=== PATIENT | male | born 1950 | race Caucasian/White ===

== ENCOUNTER 2016-10-27 13:20 | Emergency (ER) | payer BC ==
[2016-10-27] MEDS ORDERED: Aspirin 81 MG Tab.Chew PO ONE (13:35)
[2016-10-27 13:44] VITALS: BP 124/73
[2016-10-27 13:58] LABS: CHLORIDE,CL 105 mEq/L (98-106); SODIUM,NA 141 mEq/L (136-145)
--- NOTE | 2016-10-27 15:59 | EDM.PDOC ---
ED HISTORY OF PRESENT ILLNESS - General Chief Complaint: Chest Pain Stated Complaint: CHEST PAIN Time Seen by Provider: 10/27/16 14:17 Source of Information: Reports: Patient History Limitations: Reports: No limitations - History of Present Illness INITIAL COMMENTS - FREE TEXT/NARRATIVE: History of present illness: 66-year-old male presenting with complaints of sternal chest pain. Patient indicates the pain has been intermittent over the last 3 days and has caused him concern. Patient indicates that in this moment of time at assessment he no longer is having chest pain. Patient also indicates that he has had a relatively recent stress test as well as extensive family history of cardiac problems. Review of systems: As per history of present illness and below otherwise all systems reviewed and negative. Past medical history: As per history of present illness and as reviewed below otherwise noncontributory. Surgical history: As per history of present illness and as reviewed below otherwise noncontributory. Social history: No reported history of drug or alcohol abuse. Family history: As per history of present illness and as reviewed below otherwise noncontributory. Physical exam: HEENT: Atraumatic, normocephalic, pupils reactive, negative for conjunctival pallor or scleral icterus, mucous membranes moist, throat clear, neck supple, nontender, trachea midline. Lungs: Clear to auscultation, breath sounds equal bilaterally, chest nontender. Heart: S1S2, regular, negative for clicks, rubs, or JVD. Abdomen: Soft, nondistended, nontender. Negative for masses or hepatosplenomegaly. Negative for costovertebral tenderness. Pelvis: Stable nontender. Genitourinary: Deferred. Rectal: Deferred. Extremities: Atraumatic, negative for cords or calf pain. Neurovascular unremarkable. Neuro: Awake, alert, oriented. Cranial nerves II through XII unremarkable. Cerebellum unremarkable. Motor and sensory unremarkable throughout. Exam nonfocal. 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 Repeat enzymes noted no intervasl change in troponin Diagnostics: CBC, CMP, troponin, EKG, chest x-ray repeat troponin as well as CK and CK-MB send out Therapeutics: Impression: [Atypical chest pain Plan: Discharge patient to home with follow up Sunday with cardiology Definitive disposition and diagnosis as appropriate pending reevaluation and review of above. - Related Data Allergies/ADRs: Allergies Allergy/AdvReac Type Severity Reaction Status Date / Time No Known Allergies Allergy Verified 10/27/16 13:37 Home Meds: Home Meds Ascorbate Calcium [Vitamin C] 500 mg PO BID 10/15/13 [History] Aspirin [Ecotrin] 81 mg PO QPM 10/15/13 [History] Cholecalciferol (Vitamin D3) [Vitamin D] 1,000 unit PO BID 10/15/13 [History] Cyanocobalamin (Vitamin B-12) [Cyanocobalamin Injection] 1,000 mcg IJ Q30D 10/15 [History] Dipyridamole [Dipyridamole] 50 mg PO TID 10/15/13 [History] Flaxseed Oil [Flax Oil] 1,000 mg PO BID 10/15/13 [History] Levothyroxine [Sythroid] 100 mcg PO DAILY 10/15/13 [History] Lysine [L-Lysine] 500 mg PO BID 10/15/13 [History] Multivitamin [Daily Multiple Vitamin] 1 tab PO DAILY 10/15/13 [History] Simvastatin [Simvastatin] 40 mg PO QPM 10/15/13 [History] Albuterol [Ventolin HFA] 2 puff INH ASDIRECTED PRN 07/09/15 [History] Alendronate Sodium [Fosamax] 70 mg PO WEEKLY 07/09/15 [History] Brimonidine/Timolol [Combigan 0.2%/0.5% Ophth Soln] 1 drop EYERT BID 07/09/15 [ History] Budesonide/Formoterol [Symbicort 160-4.5 MCG] 2 puff INH BID 07/09/15 [History] Cyanocobalamin/FA/Pyridoxine [Folbee] 1 tab PO DAILY 07/09/15 [History] Mycophenolate Mofetil [Cellcept] 1,500 mg PO BID 07/09/15 [History] Past Medical History HEENT History: Reports: Cataract Cardiovascular History: Reports: High cholesterol Respiratory History: Reports: COPD Endocrine/Metabolic History: Reports: Hypothyroidism - Past Surgical History HEENT Surgical History: Reports: Cataract surgery Social & Family History - Tobacco Use Smoking Status *Q: Former Smoker Years of Tobacco use: 50 Tobacco Use Comment: quit 3 years ago - Caffeine Use Caffeine Use: Reports: Coffee - Recreational Drug Use Recreational Drug Use: No - Living Situation & Occupation Living situation: Reports: Occupation: employed ED ROS GENERAL - Review of Systems Review Of Systems: See Below (See history of present illness) ED EXAM, GENERAL - Physical Exam Exam: See Below (See history of present illness) Course - Vital Signs Last Recorded V/S: Last Vital Signs Temp 36.0 C 10/27/16 13:29 Pulse 95 10/27/16 13:29 Resp 16 10/27/16 13:29 BP 124/73 10/27/16 13:44 Pulse Ox 96 10/27/16 13:29 - Orders/Labs/Meds Orders: Active Orders 24 hr Category Date Time Status CXR [Chest 2V] [CR] Stat Exams 10/27/16 13:33 Taken CKMB [REF] Stat Lab 10/27/16 16:22 Received Labs: Laboratory Tests 10/27/16 10/27/16 10/27/16 Range/Units 13:33 13:33 13:33 WBC 5.8 (5.0-10.0) 10^3/uL RBC 4.44 L (4.50-6.00) 10^6/uL Hgb 14.1 (14.0-18.0) g/dL Hct 43.3 (40.0-54.0) % MCV 97.5 H (82.0-94.0) fL MCH 31.8 (27.0-32.0) pg MCHC 32.6 L (33.0-38.0) g/dL RDW Coeff of [place] 14.4 (11.0-15.0) % Plt Count 316 (150-400) 10^3/uL Neut % (Auto) 62.9 (35-85) % Lymph % (Auto) 22.5 (10-55) % [place] % (Auto) 12.7 (0-16) % Eos % (Auto) 1.2 (0-5) % Baso % (Auto) 0.7 (0-3) % Neut # 3.65 (1.80-7.00) 10^3/uL Lymph # 1.31 (1.00-4.80) 10^3/uL [place] # 0.74 (0.00-0.80) 10^3/uL Eos # 0.07 (0.00-0.45) 10^3/uL Baso # 0.04 10^3/uL PT 9.7 (9.7-12.3) SEC INR 0.92 (0.92-1.18) APTT 28.0 (24.5-30.9) SEC Sodium 141 (136-145) mEq/L Potassium 4.1 (3.5-5.0) mEq/L Chloride 105 (98-106) mEq/L Carbon Dioxide 30 (21-32) mmol/L BUN 15 (7-18) mg/dL Creatinine 1.0 (0.7-1.3) mg/dL Est Cr Clr Drug Dosing 64.69 mL/min Estimated GFR (MDRD) > 60 (>=60) mL/min Glucose 105 H (75-99) mg/dL Calcium 8.8 (8.4-10.1) mg/dL Lactate Dehydrogenase 111 (100-190) U/L Creatine Kinase 34 L (35-232) U/L Troponin I < 0.017 (0.00-0.06) ng/mL 10/27/16 Range/Units 16:15 WBC (5.0-10.0) 10^3/uL RBC (4.50-6.00) 10^6/uL Hgb (14.0-18.0) g/dL Hct (40.0-54.0) % MCV (82.0-94.0) fL MCH (27.0-32.0) pg MCHC (33.0-38.0) g/dL RDW Coeff of [place] (11.0-15.0) % Plt Count (150-400) 10^3/uL Neut % (Auto) (35-85) % Lymph % (Auto) (10-55) % [place] % (Auto) (0-16) % Eos % (Auto) (0-5) % Baso % (Auto) (0-3) % Neut # (1.80-7.00) 10^3/uL Lymph # (1.00-4.80) 10^3/uL [place] # (0.00-0.80) 10^3/uL Eos # (0.00-0.45) 10^3/uL Baso # 10^3/uL PT (9.7-12.3) SEC INR (0.92-1.18) APTT (24.5-30.9) SEC Sodium (136-145) mEq/L Potassium (3.5-5.0) mEq/L Chloride (98-106) mEq/L Carbon Dioxide (21-32) mmol/L BUN (7-18) mg/dL Creatinine (0.7-1.3) mg/dL Est Cr Clr Drug Dosing mL/min Estimated GFR (MDRD) (>=60) mL/min Glucose (75-99) mg/dL Calcium (8.4-10.1) mg/dL Lactate Dehydrogenase (100-190) U/L Creatine Kinase 31 L (35-232) U/L Troponin I < 0.017 (0.00-0.06) ng/mL Meds: Medications Discontinued Medications Generic Name Dose Route Start Last Admin Trade Name Freq PRN Reason Stop Dose Admin Aspirin 324 mg 10/27/16 13:35 10/27/16 13:23 Aspirin PO 10/27/16 13:36 324 mg ONETIME ONE Administration Departure - Departure Time of Disposition: 17:01 Disposition: Home, Self-Care 01 Condition: good Clinical Impression: Atypical chest pain Referrals: Leighton Humphreys PA-C [Primary Care Provider] - Forms: ED Department Discharge Additional Instructions: The following information is given to patients seen in the emergency department who are being discharged to home. This information is to outline your options for follow-up care. We provide all patients seen in our emergency department with a follow-up referral. The need for follow-up, as well as the timing and circumstances, are variable depending upon the specifics of your emergency department visit. If you don't have a primary care physician on staff, we will provide you with a referral. We always advise you to contact your personal physician following an emergency department visit to inform them of the circumstance of the visit and for follow-up with them and/or the need for any referrals to a consulting specialist. The emergency department will also refer you to a specialist when appropriate. This referral assures that you have the opportunity for follow-up care with a specialist. All of these measure are taken in an effort to provide you with optimal care, which includes your follow-up. Under all circumstances we always encourage you to contact your private physician who remains a resource for coordinating your care. When calling for follow-up care, please make the office aware that this follow-up is from your recent emergency room visit. If for any reason you are refused follow-up, please contact the [facility] Emergency Department at and asked to speak to the emergency department charge nurse. Followup with sales representative livestock as per the already scheduled appointment Sunday Return to ED as needed as discussed - My Orders Last 24 Hours: My Active Orders 10/27/16 13:33 CXR [Chest 2V] [CR] Stat 10/27/16 16:22 CKMB [REF] Stat - Assessment/Plan Last 24 Hours: My Active Orders 10/27/16 13:33 CXR [Chest 2V] [CR] Stat 10/27/16 16:22 CKMB [REF] Stat
== END 2016-10-27 17:15 | disposition home or self-care (01) ==
LOC: CC.ED 13:20
DX: R07.89 Other chest pain (principal); E78.00 Pure hypercholesterolemia, unspecified; J44.9 Chronic obstructive pulmonary disease, unspecified; E03.9 Hypothyroidism, unspecified; Z79.82 Long term (current) use of aspirin; Z79.899 Other long term (current) drug therapy; Z98.49 Cataract extraction status, unspecified eye; Z87.891 Personal history of nicotine dependence
CPT/HCPCS: 36415; 71020; 80048; 82550; 82553; 83615; 84484; 85025; 85610; 85730; 93005; 99285; A9270

== ENCOUNTER → 2020-09-10 | Day surgery (SDC) | payer BC, MEDICARE ==
[~2020-09-10] MED LIST: Ketamine 200 MG/20 ML MDV ONE; Lactated Ringers 1,000 ML IV SCH; Phenylephrine 1% 10 MG/ML SDV ONE; Propofol 200 MG/20 ML SDV ONE; fentaNYL 100 MCG/2 ML SDV ONE
--- NOTE | 2020-09-10 09:14 | OR ---
DATE OF OPERATION: 09/10/2020 PREOPERATIVE DIAGNOSIS: HEME-POSITIVE STOOL. POSTOPERATIVE DIAGNOSIS: HEME-POSITIVE STOOL. SURGEON: Alexander Hagen MD PROCEDURE: FULL-LENGTH DIAGNOSTIC COLONOSCOPY. ANESTHESIA: MAC. COMPLICATIONS: None. SPECIMEN: None. FINDINGS: 1. Full-length colonoscopy. 2. Moderate sigmoid diverticulosis. 3. Perianal hemorrhoid disease. RECOMMENDATIONS: Followup colonoscopy in 10 years. INDICATIONS: Mr. Garsia was in for routine physical. He was found to have heme-positive stool, has a prior history of polyps being removed. Brandin Humphreys sent him for diagnostic endoscopy. DESCRIPTION OF PROCEDURE: The patient was prepped and draped, placed in the left lateral decubitus position. A lubricated Olympus colonoscope was inserted and easily advanced to the cecum. Direct visualization of the ileocecal valve and appendiceal orifice was accomplished. The bowel prep was adequate. Upon withdrawal of the scope throughout the length of the colon, I could find no polyps, masses, ulceration or bleeding sites. No vascular abnormalities or signs of colitis. The patient does have prominent diverticulosis in the sigmoid colon, moderate in severity. The rectal vault itself appeared benign. Retroflexion confirmed a lot of perianal hemorrhoid disease and some skin tags, but no other gross lesions. Air was then suctioned. Scope was removed without complication. LETA/ADE /[id number]
[2020-09-10 09:15] VITALS: BP 110/63; PULSE 65
== END ==
LOC: CC.SDS 07:50
PROVIDERS: ATTEND Family Medicine
DX: K57.30 Diverticulosis of large intestine without perforation or abscess without bleeding (principal); K64.9 Unspecified hemorrhoids; N40.0 Benign prostatic hyperplasia without lower urinary tract symptoms; E03.9 Hypothyroidism, unspecified; E78.5 Hyperlipidemia, unspecified; G89.29 Other chronic pain; E53.8 Deficiency of other specified B group vitamins; M81.0 Age-related osteoporosis without current pathological fracture; E78.00 Pure hypercholesterolemia, unspecified; Z01.812 Encounter for preprocedural laboratory examination; Z20.822 Contact with and (suspected) exposure to COVID-19; J44.9 Chronic obstructive pulmonary disease, unspecified; Z98.890 Other specified postprocedural states; Z87.891 Personal history of nicotine dependence; Z86.73 Personal history of transient ischemic attack (TIA), and cerebral infarction without residual deficits
CPT/HCPCS: 45378; J2370; J2704; J3010; J7120

== ENCOUNTER 2021-10-02 09:15 | Emergency (ER) | payer MEDICARE, BC ==
[2021-10-02 09:22] VITALS: BP 129/76; PULSE 89
== END 2021-10-02 10:00 | disposition home or self-care (01) ==
LOC: CC.ED 09:15
DX: H11.31 Conjunctival hemorrhage, right eye (principal); E78.00 Pure hypercholesterolemia, unspecified; E03.9 Hypothyroidism, unspecified; J44.9 Chronic obstructive pulmonary disease, unspecified; Z86.73 Personal history of transient ischemic attack (TIA), and cerebral infarction without residual deficits; Z79.82 Long term (current) use of aspirin; Z79.899 Other long term (current) drug therapy
CPT/HCPCS: 99283; 99284